=== PATIENT | female | born 2005 | race Caucasian/White ===

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

== ENCOUNTER 2023-01-10 17:12 | Emergency (ER) | payer OTHER ==
[~2023-01-10] VITALS: Ht 165.1 cm; Wt 76.4 kg
[2023-01-10 17:14] VITALS: BP 144/83; TEMP 97.1; O2SAT 96
[2023-01-10 18:15] LABS: HEMATOCRIT 46.5 % (42.0-52.0); MEAN CORPUSCULAR HGB CONC 34.4 g/dl (32.0-36.5); MEAN CORPUSCULAR VOLUME 87.1 fl (80.0-96.0); PLATELET COUNT, AUTOMATED 239 10^3/uL (150-450); RED BLOOD COUNT 5.34 10^6/uL (4.30-6.10); WHITE BLOOD COUNT 8.4 10^3/uL (4.0-10.0)
[2023-01-10 18:37] LABS: ETHYL ALCOHOL (ETHANOL) < 0.003 % (0.000-0.010)
[2023-01-10 18:38] LABS: HCG, SERUM QUALITATIVE NEGATIVE
[2023-01-10 18:39] LABS: ALBUMIN 4.5 G/DL (3.2-5.2); ALKALINE PHOSPHATASE 69 U/L (46-116); ALT/SGPT 25 U/L (7.0-40); AST/SGOT 19 U/L (<34); BILIRUBIN,DIRECT 0.4 MG/DL (<0.4); BILIRUBIN,TOTAL 1.1 MG/DL (0.3-1.2); BLOOD UREA NITROGEN 12 MG/DL (9-23); CALCIUM LEVEL 9.6 MG/DL (8.5-10.1); CARBON DIOXIDE LEVEL 23 MMOL/L (20-31); CHLORIDE LEVEL 108 MMOL/L (98-107); CREATININE FOR GFR 0.69 MG/DL (0.70-1.30); GLUCOSE, FASTING 87 MG/DL (60-100); SALICYLATE LEVEL < 3.0 MG/DL (<30); SODIUM LEVEL 143 MMOL/L (136-145); TOTAL PROTEIN 7.7 G/DL (5.7-8.2)
[2023-01-10 18:41] LABS: THYROID STIMULATING HORMONE 1.499 uIU/ML (0.48-4.17)
== END 2023-01-10 21:39 | disposition home or self-care (01) ==
LOC: M ED 17:12
DX: F34.1 Dysthymic disorder (principal); F32.A Depression, unspecified; F17.200 Nicotine dependence, unspecified, uncomplicated; F19.10 Other psychoactive substance abuse, uncomplicated; Z79.899 Other long term (current) drug therapy

== ENCOUNTER → 2023-01-28 | Outpatient (REF) | payer OTHER | LOC: M LAB REF 16:50 | PROVIDERS: ATTEND Physician Assistant | DX: J02.9 Acute pharyngitis, unspecified (principal) ==

== ENCOUNTER → 2023-03-18 | Outpatient (CLI) | payer OTHER | LOC: M RAD 14:05 | PROVIDERS: ATTEND Physician Assistant | DX: R51.9 Headache, unspecified (principal) ==

== ENCOUNTER → 2023-08-27 | Outpatient (CLI) | payer OTHER | LOC: M CARPUL 13:02 | PROVIDERS: ATTEND Family Medicine | DX: M35.7 Hypermobility syndrome (principal) ==

== ENCOUNTER → 2023-10-26 | Outpatient (CLI) | payer OTHER | LOC: M RAD 15:13 | PROVIDERS: ATTEND Pain Medicine Interventional Pain Medicine | DX: M51.36 Other intervertebral disc degeneration, lumbar region (principal); M47.817 Spondylosis without myelopathy or radiculopathy, lumbosacral region; M54.16 Radiculopathy, lumbar region ==

== ENCOUNTER → 2024-03-02 | Outpatient (REF) | payer OTHER | LOC: M LAB REF 17:10 | PROVIDERS: ATTEND Nurse Practitioner Adult Health | DX: J02.9 Acute pharyngitis, unspecified (principal) ==

== ENCOUNTER → 2024-06-12 | Outpatient (CLI) | payer OTHER | LOC: M RAD 13:30 | PROVIDERS: ATTEND Family Medicine | DX: N92.6 Irregular menstruation, unspecified (principal) ==

== ENCOUNTER → 2024-06-13 | Outpatient (CLI) | payer OTHER | LOC: M RAD 08:09 | PROVIDERS: ATTEND Family Medicine | DX: R11.15 Cyclical vomiting syndrome unrelated to migraine (principal) ==

== ENCOUNTER → 2024-10-13 | Outpatient (REF) | payer OTHER | LOC: M LAB REF 15:09 | PROVIDERS: ATTEND Family Medicine | DX: J02.9 Acute pharyngitis, unspecified (principal) ==

== ENCOUNTER → 2024-12-08 | Outpatient (REF) | payer OTHER | LOC: M LAB REF 12:12 | PROVIDERS: ATTEND Physician Assistant | DX: J02.9 Acute pharyngitis, unspecified (principal) ==